=== PATIENT | female | born 1950 | race Caucasian/White ===

== ENCOUNTER → 2016-12-01 | Outpatient (CLI) | payer MEDICARE, BC ==
--- NOTE | 2016-12-01 15:24 | RAD ---
EXAM: Left knee, 2 views HISTORY: Left knee pain. Fall. COMPARISON: 04/29/2015. FINDINGS: No fractures are identified. The medial compartmental joint space is mostly effaced. There are moderate osteophytes along all 3 compartments. There is mild varus angulation. A small joint effusion is noted. IMPRESSION: 1. 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 Small joint effusion.
== END | disposition home or self-care (01) ==
LOC: DXRADRC 09:35
PROVIDERS: ATTEND Physician Assistant Medical
DX: M17.9 Osteoarthritis of knee, unspecified (principal); W19.XXXD Unspecified fall, subsequent encounter
CPT/HCPCS: 73560

== ENCOUNTER → 2021-08-22 | Outpatient (CLI) | payer MEDICARE, BC ==
--- NOTE | 2021-08-22 09:30 | RAD ---
CT HEAD/BRAIN WO History: Headache and right arm numbness. Comparison: None. Technique: Noncontrast CT imaging was performed of the head. Findings: No intracranial hemorrhage. No mass effect. No hydrocephalus. No evidence of acute territorial infar ction. Imaged orbits are unremarkable. Imaged paranasal sinuses and mastoid air cells are clear. The scalp a nd calvarium are unremarkable. Impression: 1. No acute intracranial abnormality. ----- Exposure: One or more of the following individualized dose reduction techniques were utilized for thi s examination: 1. Automated exposure control 2. Adjustment of the mA and/or kV according to patient size 3. Use of iterative reconstruction technique. Electronically signed by: Zachery Jacinto MD (08/22/2021 9:28 AM) [id number]
== END ==
LOC: RAD 08:58
PROVIDERS: ATTEND Physician Assistant Medical
DX: R51.9 Headache, unspecified (principal); R20.0 Anesthesia of skin
CPT/HCPCS: 70450

== ENCOUNTER 2021-09-01 11:27 | Emergency (ER) | payer MEDICARE, BC ==
[~2021-09-01] VITALS: Ht 160 cm; Wt 82.0 kg
--- NOTE | 2021-09-01 11:30 | PHYS DOC ---
Adult General [facility] HPI Patient is a 71 year old female who presents with fall. Patient was walking her puppy when she had a mechanical fall. Incident happened just prior to presentation. Fell forward and landed on the left forearm. Complains of abrasions to left forearm and left wrist. Bilateral knees. Primary complaint is pain in the left forearm. Uncertain when her last tetanus shot was. Did not strike her head. No neck pain, vision changes, or LOC. Did not have chest pain, shortness of breath and describes specifically a mechanical type fall. Is a status post bilateral knee replacement. Review of Systems Review of Systems Constitutional: Denies fever or chills Eyes: Denies change HENT: Denies nasal Respiratory: Denies cough or shortness of breath GI: Denies : Denies Musculoskeletal: as documented in HPI Integument: abrasions left forearm and bilateral knees Neurologic: Denies headache, focal weakness Endocrine: Denies All other systems were reviewed and found to be within normal limits, except as documented in this note. Physical Exam Physical Exam Constitutional: Well developed, well nourished, no acute distress, non-toxic appearance. HENT: Normocephalic, atraumatic, bilateral external ears normal, oropharynx moist, no oral exudates, nose normal. Eyes: PERRLA, EOMI, conjunctiva normal, no discharge. Neck: Normal range of motion, no tenderness, supple Cardiovascular:Heart rate regular rhythm, no murmur Lungs & Thorax: Bilateral breath sounds clear Skin: Superficial abrasions over bilateral knees, anterior aspect. Also small skin tear over the mid left forearm over the ulnar aspect. No suturable injury. Minor abrasion to the palm of the left hand. Distal pulses are 2+. Back: Normal ROM Extremities: Very minor abrasions over anterior knees. No gross deformity otherwise. There are scars over the anterior knees from prior knee replacements. No pain about the left shoulder with passive range of motion. No pain about the left elbow with passive range of motion. She has point tenderness along the midshaft of the radius and ulna. The left wrist has no deformity and is not tender with passive range of motion. 2+ radial pulses and distal capillary refill less than 2 seconds. Neurologic: Alert and oriented X 3, normal motor function Psychologic: Affect normal EKG EKG [] Radiology/Procedures Radiology/Procedures No acute findings or bony injury seen on x-ray of the left forearm. Heart Score C/O Chest Pain: N/A Risk Factors: Risk Factors: DM, Current or recent (<one month) smoker, HTN, HLP, family history of CAD, obesity. Risk Scores: Risk Factors: DM, Current or recent (<one month) smoker, HTN, HLP, family history of CAD, obesity. Course & Med Decision Making Course & Med Decision Making Pertinent Labs and Imaging studies reviewed. (See chart for details) ED summary: Patient seen in the ER as documented above. She had minor injury to the left forearm but no other more acute injuries. Her skin wounds were superficial. They were dressed per nursing staff. X-rays completed and no bony injury seen. Stable for discharge home. Tetanus immunization is updated during ER course. She is recommended to use Tylenol or ibuprofen as needed for discomfort at home. Follow-up with PCP. Dre Disclaimer Dragon Disclaimer This electronic medical record was generated, in whole or in part, using a voice recognition dictation system. Departure Departure: Impression: Primary Impression: Fall Additional Impression: Skin tear of forearm without complication Disposition: 01 HOME / SELF CARE / HOMELESS Condition: GOOD Referrals: RED CABELLO (PCP) Patient Instructions: Skin Tear Care Problem Qualifiers SHANNON MENDOZA DO Sep 01, 2021 11:30
[2021-09-01 11:34] VITALS: BP 116/56
[2021-09-01] MEDS ORDERED: DIPHTH,PERTUSS(ACELL),TET TOX 0.5 ML DISP.SYRIN. VAX IM ONE (11:45)
--- NOTE | 2021-09-01 12:06 | RAD ---
EXAM: Left forearm, 2 views. HISTORY: Fall. COMPARISON: None. FINDINGS: 2 views of the left forearm are obtained. There is no fracture, dislocation or subluxation. There is no elbow effusion. There is first carpometacarpal joint space narrowing, subchondral sclero sis and subchondral cyst formation. IMPRESSION: No acute osseous finding. Mild first carpal metacarpal joint osteoarthritis. Electronically signed by: Jackie Jones MD (09/01/2021 12:03 PM) [id number]
== END 2021-09-01 12:25 | disposition home or self-care (01) ==
LOC: ER 11:27
DX: S51.812A Laceration without foreign body of left forearm, initial encounter (principal); S60.512A Abrasion of left hand, initial encounter; S80.212A Abrasion, left knee, initial encounter; S80.211A Abrasion, right knee, initial encounter; W18.39XA Other fall on same level, initial encounter; Y93.01 Activity, walking, marching and hiking; Y92.89 Other specified places as the place of occurrence of the external cause; Y99.8 Other external cause status
CPT/HCPCS: 73090; 90471; 90715; 99284

== ENCOUNTER → 2021-10-20 | Outpatient (CLI) | payer MEDICARE, BC ==
--- NOTE | 2021-10-20 10:47 | RAD ---
EXAM: XR SHOULDER_LEFT 2+ VIEWS, XR CERVICAL SPINE 4-5V 10/20/2021 9:40 AM CLINICAL INDICATION: Fell 3 months ago, pain COMPARISON: None TECHNIQUE: AP, odontoid, lateral, right and left oblique views of the cervical spine. AP internal, A P external, and scapular Y views of the left shoulder FINDINGS: Cervical spine: No acute fracture. Alignment is normal. There is mild to moderate disc space narrowin g, greatest at C5-C6. Small anterior osteophytes and uncovertebral joint proliferation throughout the cervical spine. Mild facet arthrosis. The dens is intact and symmetric and the ring of C1. Preverteb ral soft tissue is normal. Left shoulder: No acute fracture. Alignment is normal. There is mild acromioclavicular degenerative j oint disease. The glenohumeral joint is maintained. The subacromial space is preserved. IMPRESSION: 1. No acute osseous abnormality of the cervical spine or left shoulder. 2. Mild to moderate cervical degenerative disc disease. 3. Mild left acromioclavicular degenerative joint disease. Electronically signed by: Kylee Alston MD (10/20/2021 10:45 AM) [id number]
== END ==
LOC: RAD 09:25
PROVIDERS: ATTEND Physician Assistant Medical
DX: M50.30 Other cervical disc degeneration, unspecified cervical region (principal); M25.78 Osteophyte, vertebrae; M48.02 Spinal stenosis, cervical region; M19.012 Primary osteoarthritis, left shoulder
CPT/HCPCS: 72050; 73030